=== PATIENT | male | born 1950 | race Caucasian/White ===

== ENCOUNTER 2018-07-24 20:03 | Inpatient (IN) | payer OTHER ==
[~2018-07-24] VITALS: Ht 162.6 cm; Wt 86.4 kg
--- NOTE | ~2018-07-24 | EKG ---
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: JEFFREY : 1950 Requested By: Kyle Hope Order Number: [id number] MD: Saji Newman Measurements Intervals [place] Rate: 86 P: 0 MS: 54 QRS: -29 QRSD: 111 T: 12 QT: 398 QTc: 476 Interpretive Statements Sinus rhythm Ventricular premature complex Consider right atrial enlargement Borderline left axis deviation Low voltage, precordial leads Nonspecific T abnormalities, anterior leads No previous ECG available for comparison Electronically Signed On 07-25-2018 11:06:00 CDT by Saji Newman [email or web address] <ELECTRONICALLY SIGNED> By: Saji Newman MD 07/25/18 1106 26 26 Saji Newman MD /ANGELINE
--- NOTE | ~2018-07-24 | HC ---
[facility] [place] [address] CONSULTATION Name: NOEMY SAUCEDO Room #: 356-P ADM IN M.R.#: [id number] Admission: 07/24/18 Attend Phys: Mariana Nicole Discharge: Date of : 54 Report #: [id number] THIS REPORT FOR: //name// CC: Mariana Lema TYPE OF REPORT: Pulmonary consultation. REFERRING PHYSICIAN: Steve Clay M.D. REASON FOR REFERRAL: Dyspnea. HISTORY OF PRESENT ILLNESS: The patient is a 68-year-old white male who was admitted on 07/24/2018 with dyspnea, constipation for the past 15 days. A Pulmonary consultation was requested due to increasing dyspnea. KUB and chest x-ray shows moderately increased gas pattern with diaphragmatic elevation. Lung volumes are small. The patient just had a NG tube placed. He states that his breathing is much improved. Otherwise, denies any chest pain, productive cough or hemoptysis. PAST MEDICAL HISTORY: Notable for COPD, hypertension, schizophrenia, hyperlipidemia, venous insufficiency and history of thrombophlebitis. PAST SURGICAL HISTORY: Noncontributory. FAMILY HISTORY: Notable for neoplasm in the grandparent. ALLERGIES: None to medications. MEDICATIONS: List reviewed in the MAR. SOCIAL HISTORY: The patient does smoke about a pack a day. He has smoked for about the last 46 years. REVIEW OF SYSTEMS: As mentioned above, otherwise 10-point system review negative. PHYSICAL EXAMINATION: GENERAL: He is awake, alert, appears in mild distress. He has an NG placed. VITAL SIGNS: Temperature is 98 degrees Fahrenheit, pulse is 80, respiratory rate is 20, blood pressure 140/86 mmHg and saturation 97%. HEENT: Normocephalic and atraumatic. NECK: Supple, without any lymphadenopathy or thyromegaly. CHEST: Breath sounds are decreased at the bases, few scattered crackles in the bases and mild expiratory wheezes. [facility] [address] [place] [address] CONSULTATION Name: NOEMY SAUCEDO Room #: 356-P ADM IN .R.#: [id number] Admission: 07/24/18 Attend Phys: Mariana Nicole Discharge: Date of : 54 Report #: [id number] CARDIOVASCULAR: Normal S1 and S2. There are no murmurs. There is no gallop. There is no JVD. There is no carotid bruit. Pulses are 2+/4+ bilaterally. ABDOMEN: Mildly distended and tympanitic. No masses felt. Mildly tender, but no rebound tenderness. GENITOURINARY: Deferred. RECTAL: Deferred. EXTREMITIES: Has no edema, cyanosis or clubbing. RADIOLOGICAL DATA: Chest x-ray and KUB as mentioned above. LABORATORY DATA: Electrolytes unremarkable except for creatinine of 1.2. Liver enzymes are mildly grossly unremarkable. WBC 9500, hemoglobin is 13.4 and platelets are normal. Albumin 2.9. Arterial blood gas revealed pH 7.35, pCO2 of 43 and pO2 of 75 on 50% FiO2. IMPRESSION: 1. Dyspnea secondary to chronic obstructive pulmonary disease along with abdominal distention. 2. Ileus versus partial small-bowel obstruction. 3. History of constipation. 4. History of hypertension. 5. Schizophrenia. RECOMMENDATIONS: Agree with NG tube placement, continue bronchodilators and corticosteroids. DVT and GI prophylaxis recommended. Thank you for this consultation. <ELECTRONICALLY SIGNED> By: Ezequiel Braswell MD 07/30/18 1757 1746 0133 Ezequiel Braswell MD /nt
--- NOTE | ~2018-07-24 | HC ---
[facility] [place] [address] CONSULTATION Name: NOEMY SAUCEDO Room #: 356-P ADM IN M.R.#: [id number] Admission: 07/24/18 Attend Phys: Mariana Nicole Discharge: Date of : 54 Report #: [id number] THIS REPORT FOR: //name// CC: Saulo Wilson Obed DATE OF SERVICE: 07/25/2018 REQUESTING PROVIDER: SERGIO Varghese REASON FOR CONSULTATION: Possible colonic stricture versus mass per CT. HISTORY OF PRESENT ILLNESS: A 68-year-old male who is in the hospital because of a COPD exacerbation, he states. He thinks that this is back to his baseline today. He had a CT done that showed a large amount of stool in the colon, which is moderately distended with a focal change of caliber in the sigmoid colon. A colonic mass or neoplasm causing this narrowing cannot be excluded and radiologist recommends a colonoscopy. The patient states he has never had a colonoscopy. He states he has been having difficulty with constipation, which is something new for him recently. He has seen no blood in the stool, he reports. PAST MEDICAL HISTORY: Otherwise is reviewable in the computerized medical records. CURRENT MEDICATIONS: Include a nicotine patch, methylprednisolone, potassium chloride, magnesium sulfate, albuterol, ondansetron p.r.n., morphine p.r.n. ALLERGIES: There are no known drug allergies. FAMILY HISTORY: Noncontributory. SOCIAL HISTORY: Noncontributory. PHYSICAL EXAMINATION: GENERAL: He has been afebrile. He has been hemodynamically stable. ABDOMEN: Distended, but soft. There are normoactive bowel sounds. There is mild tenderness throughout without peritoneal signs. LABORATORY DATA: White count is normal, hemoglobin is 13.6, platelet count is 249,000. A blood gas done last night reveals a pH of 7.36, pCO2 of 39.0, pO2 of 80.3. His potassium is 2.9 this morning. Other electrolytes are normal. BUN and creatinine are normal. LFTs are normal. IMPRESSION: A 68-year-old male with abnormal CT and constipation who has never had a colonoscopy. [facility] [address] [place] [address] CONSULTATION Name: NOEMY SAUCEDO Room #: 356-P [facility] IN M.R.#: [id number] Admission: 07/24/18 Attend Phys: Mariana Nicole Discharge: Date of : 54 Report #: [id number] PLAN: Schedule colonoscopy for 07/27/2018. <ELECTRONICALLY SIGNED> By: Khris Reynaga MD 07/31/18 0832 0842 1212 Kadeem Yap MD /nt
--- NOTE | ~2018-07-24 | HC ---
[facility] [place] [address] CONSULTATION Name: NOEMY SAUCEDO Room #: 427-P ADM IN M.R.#: [id number] Admission: 07/24/18 Attend Phys: Mariana Nicole Discharge: Date of : 54 Report #: [id number] THIS REPORT FOR: //name// CC: Mariana Lema DATE OF SERVICE: 08/03/2018 WOUND CARE CONSULTATION CHIEF COMPLAINT: Surgical wound, abdominal wall. HISTORY OF PRESENT ILLNESS: This is a 68-year-old male patient who had a near complete colonic obstruction due to mass concerning for carcinoma. He has had abdominal discomfort and nausea. He was noted to have a rectosigmoid mass or palpable lymphadenopathy surrounding the mesentery. He has undergone a diagnostic laparoscopy, which was converted to an open subtotal colectomy with omentectomy, end ileostomy, sigmoid mucous fistula proximal to unresected rectosigmoid mass and left liver lobe biopsies performed on 07/31/2018. He has had some generalized abdominal discomfort following surgery, some separation of the abdominal wall incision line. I have been asked by Dr. Gaines to evaluate him for wound care options. PAST MEDICAL HISTORY: Positive for history of COPD, colonic stricture, hypertension, previous DVT, venous insufficiency, schizophrenia, hyperlipidemia. SOCIAL HISTORY: The patient has smoked half pack of cigarettes daily for the last 46 years. Denies alcohol or drug use. FAMILY HISTORY: Positive for colon cancer in his grandfather. MEDICATIONS: Include Klonopin, vitamin D3, Lexapro, Ziac, Caltrate, clozapine, clonazepam, Lipitor. ALLERGIES: None. REVIEW OF SYSTEMS: CONSTITUTIONAL: The patient denies fever, chills, weight loss. NEUROLOGICAL: The patient denies focal weakness, numbness or tingling. EYES: The patient denies visual changes, redness or drainage. ENT: The patient denies earache, nasal drainage or sore throat. CARDIOVASCULAR: The patient denies chest pain or palpitations, diaphoresis. PULMONARY: The patient denies cough or shortness of breath. GASTROINTESTINAL: The patient does complain of abdominal distention and nausea with vomiting. ORTHOPEDIC: The patient denies pain or swelling in the extremities. [facility] [address] [place] [address] CONSULTATION Name: NOEMY SAUCEDO Room #: 427-P ADM IN M.R.#: [id number] Admission: 07/24/18 Attend Phys: Mariana Nicole Discharge: Date of : 54 Report #: [id number] Other systems in a 14-point review of systems are negative. PHYSICAL EXAMINATION: VITAL SIGNS: At this time include pulse 75, respirations 24, blood pressure 113/77, temperature 99.1. GENERAL: This is a chronically ill-appearing male patient who appears to be in mild discomfort. HEENT: Head normocephalic. Nose and throat clear. NECK: Supple. LUNGS: Diminished. HEART: Regular rhythm. ABDOMEN: Slightly distended. Bowel sounds are present. He has a midline surgical incision line. There is a little bit of separation in the mid portion of this vertical incision line. I have removed one of the [place] and have applied a small amount of pressure along the edges, allowing some better exposure of the incision. This is a partial separation and there is no evidence of true dehiscence. The proximal and distal ends of the incision line appear to be intact. He has a mucous fistula and end ileostomy present on the abdominal wall with some output in the ostomy bag. EXTREMITIES: Without clubbing or cyanosis. He does have some chronic venous stasis dermatitis changes of his lower extremities. NEUROLOGIC: The patient is alert and oriented and appropriate. LABORATORY DATA: Includes white blood cell count 9.8 with hemoglobin of 10.8, hematocrit 31.5. Sodium 140, potassium 4.3, chloride 105, BUN 17, creatinine 1.2, calcium is 7.9. AST is 51, ALT 38, alkaline phosphatase 43, total protein is 4.5, albumin is quite low at 1.8. CLINICAL IMPRESSION: 1. Surgical wound of the abdominal wall following near complete colonic obstruction due to mass, status post subtotal colectomy with omentectomy, end ileostomy, sigmoid mucous fistula and liver lobe biopsy. 2. Chronic obstructive pulmonary disease. 3. Severe protein-calorie malnutrition. RECOMMENDATIONS: At this point in time, we will recommend packing of the surgical wound today with iodoform gauze, which was performed at the bedside. We will recommend a wound VAC likely to be placed on the . He will need aggressive nutritional support. We will continue current medications. I appreciate being asked to see him in consultation. <ELECTRONICALLY SIGNED> By: Zachary Monzon MD 08/05/18 0816 1332 213 Zachary Monzon MD /nt
--- NOTE | ~2018-07-24 | EKG ---
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: LESLIE : 1950 Requested By: Elo Hameed Order Number: [id number] MD: Measurements Intervals [place] Rate: 73 P: 54 [place]: 154 QRS: -10 QRSD: 104 T: 33 QT: 415 QTc: 458 Interpretive Statements Sinus rhythm RSR' in V1 or V2, right VCD or RVH Baseline wander in lead(s) II,III,aVF Compared to ECG 07/24/2018 20:27:32 Right ventricular hypertrophy now present RSR' in V1 or V2 now present Ventricular premature complex(es) no longer present T-wave abnormality no longer present [email or web address] By: 625 [id number] Epiphany Epiphany, /EPI
--- NOTE | ~2018-07-24 | EKG ---
[address] [address] ELECTROCARDIOGRAM REPORT Name: NOEMY SAUCEDO Room #: 356-P ADM IN M.R.#: [id number] Admission: 07/24/18 Attend Phys: Mariana Nicole Discharge: Date of : 54 Report #: [id number] THIS REPORT FOR: //name// [facility] Test Date: 2018-07-31 Test Time: 06:25:46 Pat Name: NOEMY SAUCEDO Department: Room: 356 P Gender: M Collect On Delivery Clerk: LESLIE : 1950 Requested By: Elo Hameed Order Number: [id number] MD: Abrahan Johnson Measurements Intervals [place] Rate: 73 P: 54 [place]: 154 QRS: -10 QRSD: 104 T: 33 QT: 415 QTc: 458 Interpretive Statements Sinus rhythm RSR' in V1 or V2, right VCD Baseline wander in lead(s) II,III,aVF Compared to ECG 07/24/2018 20:27:32 premature ventricular complexes are no longer present Electronically Signed On 07-31-2018 8:16:46 [employer] by Abrahan Johnson [email or web address] <ELECTRONICALLY SIGNED> By: Abrahan Johnson MD, [facility] 07/31/18 0816 0625 Abrahan Johnson MD, [facility] /EPI
--- NOTE | ~2018-07-24 | P ---
[facility] [place] [address] PROCEDURE REPORT Name: NOEMY SAUCEDO Room #: 356-P ADM IN M.R.#: [id number] Admission: 07/24/18 Attend Phys: Mariana Nicole Discharge: Date of : 54 Report #: [id number] THIS REPORT FOR: //name// CC: Geo Sal DATE OF SERVICE: 07/30/2018 PROCEDURE: Flexible sigmoidoscopy with biopsy and tattooing of sigmoid lesion. PATIENT OF: Latha Sal MD and Sam Angulo MD. INDICATION FOR PROCEDURE: This patient has symptoms of a bowel obstruction. He has a mass in his sigmoid that is suspected based on CT scan findings. It appears to be an obstructing mass with proximal colonic and small bowel dilatation. Flexible sigmoidoscopy is being performed today to obtain biopsies and tattoo the distal edge of the lesion. Informed consent for this procedure was obtained prior to the administration of any medication. The risks of the procedure which include bleeding, perforation, infection, complications of sedation and the possibility I could miss something have been explained to the patient and he has indicated his consent by signing. Digital rectal exam did not reveal any palpable abnormalities and the prostate does not seem enlarged. Then, the Olympus colonoscope was introduced through the anal sphincter and advanced under direct visualization to approximately 15 cm from the anal verge where I encountered a completely obstructing distal sigmoid lesion that is probably a colon cancer. Multiple biopsies were obtained from this lesion for histopathology and good hemostasis was noted after those biopsies were performed. Then, I used 4 mL of spot tattoo ink to inject 1 mL in every quadrant just below the lesion or distal to the lesion. Then, the retroflexion in the rectum revealed no other abnormalities. The scope was withdrawn. The patient went to the recovery area in stable condition. He tolerated the procedure well. IMPRESSION: Obstructing mass at 15 cm in the distal sigmoid colon, biopsied and tattooed as above. RECOMMENDATIONS: Recommendations are to await the path report. I believe, the patient is going to go to surgery tomorrow for a diverting colostomy and possible sigmoid resection. [facility] [address] [place] [address] PROCEDURE REPORT Name: NOEMY SAUCEDO Room #: 356-P [facility] IN M.R.#: [id number] Admission: 07/24/18 Attend Phys: Mariana Nicole Discharge: Date of : 54 Report #: [id number] Thank you very much once again for allowing me to participate in his care, Dr. Angulo and Dr. Sal. <ELECTRONICALLY SIGNED> By: Aleida Storm DO 07/31/18 0728 1442 0444 Aleida Storm, /nt
--- NOTE | ~2018-07-24 | PATH ---
[facility] [address] [place] [address] PATHOLOGY RPT PROCEDURE Name: NOEMY SAUCEDO Room #: 429-P ADM IN M.R.#: [id number] Admission: 07/24/18 Date of : 54 Discharge: Report #: [id number] Path Case #: [id number] Note [facility] Accession Number: [id number] TESTS RESULT FLAG UNITS REF RANGE LAB Clinician Provided Cytology Information No. of containers..01 Other (Miscellaneous) Source: PERITONEAL FLUID DIAGNOSIS: 02 PERITONEAL FLUID NEGATIVE FOR MALIGNANT CELLS. REACTIVE MESOTHELIAL CELLS ARE PRESENT. THIS INTERPRETATION INCLUDES EVALUATION OF A CELL BLOCK. Signed out by: Maricarmen Alas MD, Pathologist NPI- [id number] Performed by: Andreas Davis, Principal Android Developer ([facility]) Gross description: 01 13ML, RED (BLOODY), CLOUDY /LCS FLAG LEGEND: L-Low Normal,H-High Normal,LL-Alert Low,HH-Alert High <-Panic Low,>-Panic High,A-Abnormal,AA-Critical Abnormal Performed at: [address] [place] [address] Tristan Donovan MD, [address] [address] Maricarmen Alas MD, Specimen Comment: A courtesy copy of this report has been sent to [employer] Comment: [phone]. Specimen Comment: Report sent to Specimen Comment: A duplicate report has been generated due to demographic updates. Performed at: [address], [place], [place] [id number] MD Tristan Donovan MD Phone: [phone]
--- NOTE | ~2018-07-24 | PATH ---
[facility] [place] [address] PATHOLOGY RPT PROCEDURE Name: NOEMY SCHROEDER Room #: 427-P ADM IN M.R.#: [id number] Admission: 07/24/18 Date of : 54 Discharge: Report #: [id number] Path Case #: [id number] LCA Accession Number: [id number] . 01 Material submitted: . PART A: SUBTOTAL COLECTOMY PART B: LIVER BIOPSY PART C: OMENTECTOMY . 01 Clinical history: . Colonic stricture. . 02 Diagnosis: A. Terminal ileum, appendix and colon, subtotal colectomy: - Multiple polyps identified within the cecum, transverse colon, distal colon, and status post polypectomy within the distal sigmoid. - Tubular adenoma x3, cecum, transverse colon and distal colon; negative for high-grade dysplasia. - 14.0 cm terminal ileum showing marked dilation and reactive changes. - Appendix with focal reactive hyperplastic changes. - Four reactive lymph nodes. - Negative for malignancy. - Margins of resection are showing no significant diagnostic abnormalities. . B. Liver, needle core biopsy: - Approximately 10% macrovesicular steatosis. - Mild portal chronic inflammation. - Negative for malignancy. . C. Omentum, omentectomy: - Fibroadipose tissue with congestion and reactive changes. - Negative for malignancy. . (IUV:clean out driller helper; 08/03/2018) MBR/08/04/2018 . 02 Comment: A: Multiple polyps are identified throughout the large intestine; however, no malignancy (invasive adenocarcinoma) is identified. The specimen obtained during the flexible sigmoidoscopy ([id number]) showed a tubular adenoma associated with multiple foci of high-grade dysplasia; however, no invasive adenocarcinoma. This focus showed no residual tubular adenoma upon resection. Please refer to separate report for complete details. . B: Examination shows mild portal chronic inflammation within the [address] [address] PATHOLOGY RPT PROCEDURE Name: NOEMY SCHROEDER Room #: 427-P [facility] IN .R.#: [id number] Admission: 07/24/18 Date of : 54 Discharge: Report #: [id number] Path Case #: [id number] adequately sampled liver needle core biopsy tissue. Approximately 10% macrovesicular steatosis is identified. There is no evidence of steatohepatitis. There is no evidence of ballooning, or foci of lobular inflammation present. The bile ducts appear unremarkable without any evidence of destruction, or ductular proliferation. Trichrome stain shows mildly enlarged portal tracts with no evidence of periportal or perisinusoidal fibrosis. Trichrome stain shows intact hepatic reticulum. PAS were done with and without diastase highlight Kupffer cell macrophages and are negative for intracytoplasmic globules in zone one. Iron stain is negative. . The lack of malignancy in the current specimen is discussed with Dr. Tremaine Gaines at noon on 08/03/18. . (IUV:clean out driller helper; 08/03/2018) . 02 Electronically signed: . Maricarmen Alas MD, Pathologist NPI- [id number] . 01 Gross description: . A. Received in formalin labeled "Elda, Noemy, subtotal colectomy" is a specimen consisting of a portion of terminal ileum (14.0 x 2.5 cm), cecum (12.0 x 9.0 x 1.8 cm), vermiform appendix (6.8 x 1.2 cm), and segment of large bowel (143.5 x 5.2 cm). The proximal and distal margins are closed with dakotah line. The serosa is pink-cook and smooth with an area of possible black ink measuring 5.4 x 3.4 cm, which is located 0.6 cm from the distal staple line margin. The specimen is opened to reveal a cook-brown sessile nodular polyp within the cecum measuring 2.8 x 1.4 x 0.5 cm. The polyp is located 3.5 cm from the ileocecal valve and 5.5 cm from the appendiceal orifice. Present within the transverse colon is a separate sessile colon polyp measuring 0.8 x 0.8 x 0.2 cm. A third polyp is identified in the distal aspect of the specimen measuring 0.8 x 0.5 x 0.3 cm. The polyps are located 18.3 cm from the proximal margin and 45.0 cm from the distal margin at closest approach. The uninvolved colonic mucosa is flattened and dilated, without grossly evident areas of stricture. The possible ink at the distal aspect does not correspond with an abnormality on the mucosal surface. The appendix is serially sectioned to reveal no fecaliths or perforations, and an average luminal diameter of 0.6 cm. The mesenteric fat is palpitated and serially sectioned to reveal 4 pink-cook possible lymph nodes ranging from 0.2-0.3 cm in greatest dimension. Label Fuser Tender sections of the specimen are submitted as follows: . A1 proximal margin A2-A4 distal margin A5 investment representative ileocecal valve A6 investment representative appendix and one half of the distal tip [facility] [address] [address] PATHOLOGY RPT PROCEDURE Name: NOEMY SCHROEDER Room #: 427-P ADM IN M.R.#: [id number] Admission: 07/24/18 Date of : 54 Discharge: Report #: [id number] Path Case #: [id number] A7 closest mesenteric margin for cecal polyp A8-A10 entire cecal polyp, serosa inked black A11 transverse colon polyp, bisected A12 distal colon polyp A13 investment representative sections of possible serosal tattoo A14 multiple possible lymph nodes A15 additional pericolonic fat to look for lymph nodes ([facility]; 08/02/2018) . After initial microscopic examination, a thorough second inspection is performed. No distinct masses or lesions are noted grossly. Additional investment representative sections are submitted as follows: . A16 cross-section of black inked serosal surface closest to distal margin A17-A21 remainder of black inked serosal surface, perpendicular sections. ([facility]; 08/03/2018) . B. Received in formalin labeled "Noemy Schroeder, liver biopsy" are two cook-brown cylindrical soft tissue cores which measure 0.2 cm in diameter and 1.6 and 1.4 cm in length. The specimen is submitted entirely in cassette B1. . C. Received in formalin labeled "Noemy Schroeder, omentectomy: A cook-yellow lobulated portion of omentum measuring 49.0 x 22.5 x 2.0 cm. Focal hemorrhagic areas are identified. No tumor nodules are present. Label Fuser Tender sections are submitted in cassettes C1-C3, with 2 sections in each cassette. ([facility]; 08/02/2018) SYC/SYC . 02 Pathologist provided ICD-10: D12.0, D12.3, D12.6, K76.0, K76.9, K66.8 . 02 CPT . 439336, 801571, 654062, 017158, 522730, 403283, 887449, 987820, 270411 Specimen Comment: A courtesy copy of this report has been sent to Specimen Comment: [phone], . Specimen Comment: Report sent to / DR FU Specimen Comment: A duplicate report has been generated due to demographic updates. Performed at: [address], [place] [id number] MD Tristan Donovan MD Phone: [phone] Performed at: [address] [id number] [address] [address] PATHOLOGY RPT PROCEDURE Name: NOEMY SCHROEDER Room #: 427-P ADM IN M.R.#: [id number] Admission: 07/24/18 Date of : 54 Discharge: Report #: [id number] Path Case #: [id number] MD Maricarmen Alas MD Phone: [phone]
--- NOTE | ~2018-07-24 | PATH ---
[facility] [address] [place] [address] PATHOLOGY RPT PROCEDURE Name: NOEMY SCHROEDER Room #: 427-P ADM IN M.R.#: [id number] Admission: 07/24/18 Date of : 54 Discharge: Report #: [id number] Path Case #: [id number] LCA Accession Number: [id number] . 01 Material submitted: . DISTAL SIGMOID MASS BIOPSY . 01 Clinical history: . Abnormal CT Distal sigmoid mass . 02 Diagnosis: Sigmoid colon, distal sigmoid mass, endoscopic biopsy: - Tubular adenoma associated with foci of high grade dysplasia. - No definite invasive carcinoma present (please see comment). LBQ/08/03/2018 . 02 Comment: Examination shows fragments of a tubular adenoma associated with high grade dysplasia sampled in multiple fragments. Invasive carcinoma is not identified. The provided finding of "mass" is noted. Irregular glands, or desmoplastic foci are not present in the biopsy tissue to support a diagnosis of invasive adenocarcinoma. It is noted that the specimen [id number] is a colon resection on the same patient. Lack of invasive adenocarcinoma in this, as well as the colon resection, are discussed with Dr. Tremaine Gaines at 12:05 p.m. on 08/03/18. (IUV/db; 08/03/18) . 02 Electronically signed: . Maricarmen Alas MD, Pathologist NPI- [id number] . 01 Gross description: . The specimen is received in formalin, labeled "Noemy Schroeder, distal sigmoid mass biopsy" and consists of multiple soft and friable fragments of cook tissue measuring 1.5 x 0.6 x 0.3 cm in aggregate which are entirely submitted in A1. (SDY; 07/31/2018) SYU/SYU . 02 Pathologist provided ICD-10: D12.5 . 02 CPT . 513392 Specimen Comment: A courtesy copy of this report has been sent to Specimen Comment: [phone], , [place] [address] PATHOLOGY RPT PROCEDURE Name: NOEMY SCHROEDER Room #: 427-P [facility] IN M.R.#: [id number] Admission: 07/24/18 Date of : 54 Discharge: Report #: [id number] Path Case #: [id number] Specimen Comment: Report sent to Dr.DR TANK MCLEOD / DR SENIOR Specimen Comment: A duplicate report has been generated due to demographic updates. Performed at: [address] [facility] [address], [place], [place] [id number] MD Tristan Donovan MD Phone: [phone] Performed at: [address] [facility] [address] [id number] MD Maricarmen Alas MD Phone: [phone]
[2018-07-24 20:10] VITALS: BP 148/78
[2018-07-24] MEDS ORDERED: LIPITOR 20 MG T20 M1 PO (20:21)
[2018-07-24] MEDS ORDERED: INGREZZA40 MG PO (20:22)
[2018-07-24] MEDS ORDERED: [UNRECOGNIZED DRUG - OTHER] PO (20:23)
[2018-07-24] MEDS ORDERED: KLONOPIN1 MG PO (20:23)
[2018-07-24 20:36] LABS: ABSOLUTE NEUTROPHILS 7.2 thou/uL (1.4-8.2); BASOPHILS 0.4 % (0.0-2.0); HEMOGLOBIN 13.6 gm/dL (14.0-18.0); LYMPHOCYTES 6.2 % (24.0-44.0); MCV 91.3 fL (80.0-100.0); MONOCYTES 4.6 % (1.0-8.0); PLATELET COUNT 249 thou/uL (150-400); POLYS 88.8 % (36.0-66.0); RBC 4.38 mil/uL (4.50-6.00); RDW 15.6 % (10.5-14.5); WBC 8.1 thou/uL (4.0-11.0)
[2018-07-24 20:41] LABS: ANION GAP 13 mmol/L (7-16); BUN 13 mg/dL (7-18); CALCIUM 8.5 mg/dL (8.5-10.1); CHLORIDE 106 mmol/L (98-107); CO2 25 mmol/L (21-32); CREATININE 1.4 mg/dL (0.7-1.3); GLUCOSE 119 mg/dL (74-106); SODIUM 144 mmol/L (136-145)
[2018-07-24 20:48] LABS: BE(vivo) -3.5 mmol/L (-2 to +3); HCO3 21.5 mmol/L (22.0-26.0); PO2 80.3 mmHg (80.0-100.0); sO2 95.5 % (92.0-98.0)
[2018-07-24 20:49] LABS: ALBUMIN 2.9 g/dL (3.4-5.0); DIRECT BILIRUBIN 0.2 mg/dL (<0.1-0.3); LIPASE 71 U/L (73-393); SGOT 22 U/L (15-37); SGPT 17 U/L (30-65); TOTAL BILIRUBIN 0.5 mg/dL (<0.1-1.0); TOTAL PROTEIN 6.6 g/dL (6.4-8.2); TROPONIN-I <0.06 ng/mL (<0.06)
[2018-07-24 21:50] LABS: URINE BILIRUBIN NEGATIVE (Negative); URINE BLOOD NEGATIVE (Negative); URINE CLARITY CLEAR; URINE COLOR YELLOW; URINE GLUCOSE-RANDOM* NEGATIVE (Negative); URINE KETONES NEGATIVE (Negative); URINE LEUKOCYTES-REFLEX NEGATIVE (Negative); URINE NITRITE-REFLEX NEGATIVE (Negative); URINE PROTEIN (DIPSTICK) NEGATIVE (Negative); URINE SPECIFIC GRAVITY >= 1.030 (1.005-1.035); URINE UROBILINOGEN 0.2 E.U./dl (0.2-1.0)
[2018-07-24 23:25] VITALS: BP 147/96
[2018-07-24 23:34] VITALS: BP 152/102
[2018-07-25] VITALS (7 sets, daily range): BP systolic 132–145; BP diastolic 79–94
[2018-07-25] MEDS ORDERED: VITAMIN D5000 UNIT PO (02:49)
[2018-07-25] MEDS ORDERED: LEXAPRO20 MG PO (02:50)
[2018-07-25] MEDS ORDERED: ZIAC 5-6.25 MG1 EACH PO (02:53)
[2018-07-25] MEDS ORDERED: CALCIUM 600 +1 EAC1 PO (02:54)
[2018-07-25] MEDS ORDERED: CLOZAPINE100 M1 PO (02:56)
[2018-07-25] MEDS ORDERED: CLONAZEPAM 1 MG1 M1 PO (02:58)
[2018-07-25] MEDS ORDERED: CLONAZEPAM 0.50.5 M1 PO (03:01)
[2018-07-25] MEDS ORDERED: CLOZAPINE200 MG PO (03:03)
[2018-07-25 06:19] LABS: CREATININE 1.3 mg/dL (0.7-1.3)
[2018-07-25 06:21] LABS: POTASSIUM 2.9 mmol/L (3.5-5.1)
[2018-07-26] VITALS (8 sets, daily range): BP systolic 137–167; BP diastolic 79–100
[2018-07-26 06:39] LABS: ALBUMIN 2.9 g/dL (3.4-5.0); CALCIUM 8.2 mg/dL (8.5-10.1); CREATININE 1.2 mg/dL (0.7-1.3); PHOSPHORUS 2.7 mg/dL (2.5-4.9); POTASSIUM 3.9 mmol/L (3.5-5.1)
[2018-07-26 22:03] LABS: HCO3 21.9 mmol/L (22.0-26.0); PO2 60.2 mmHg (80.0-100.0); sO2 89.3 % (92.0-98.0)
[2018-07-26 22:04] LABS: pH 7.325 (7.360-7.450)
[2018-07-27] VITALS (7 sets, daily range): BP systolic 144–153; BP diastolic 57–110
[2018-07-27 04:38] LABS: BE(vivo) -2.3 mmol/L (-2 to +3); HCO3 23.3 mmol/L (22.0-26.0); PCO2 43.1 mmHg (35.0-45.0); PO2 75.3 mmHg (80.0-100.0); pH 7.351 (7.360-7.450); sO2 94.5 % (92.0-98.0)
[2018-07-27 10:00] LABS: HEMATOCRIT 40.7 % (42.0-52.0); HEMOGLOBIN 13.4 gm/dL (14.0-18.0); MCH 30.1 pg (26.0-34.0); MCHC 32.9 g/dL (28.0-37.0); MCV 91.5 fL (80.0-100.0); RBC 4.45 mil/uL (4.50-6.00); RDW 15.7 % (10.5-14.5); WBC 9.5 thou/uL (4.0-11.0)
[2018-07-27 10:10] LABS: CALCIUM 8.5 mg/dL (8.5-10.1); CREATININE 1.4 mg/dL (0.7-1.3); POTASSIUM 3.6 mmol/L (3.5-5.1)
[2018-07-28] VITALS (8 sets, daily range): BP systolic 136–153; BP diastolic 86–109
[2018-07-29 03:20] VITALS: BP 123/79
[2018-07-29 08:13] VITALS: BP 122/74
[2018-07-29 11:00] LABS: ABSOLUTE NEUTROPHILS 7.3 thou/uL (1.4-8.2); BASOPHILS 0.3 % (0.0-2.0); HEMATOCRIT 43.7 % (42.0-52.0); HEMOGLOBIN 14.5 gm/dL (14.0-18.0); LYMPHOCYTES 1.9 % (24.0-44.0); MCH 30.1 pg (26.0-34.0); MCHC 33.1 g/dL (28.0-37.0); MCV 90.9 fL (80.0-100.0); MONOCYTES 5.2 % (1.0-8.0); PLATELET COUNT 217 thou/uL (150-400); POLYS 92.6 % (36.0-66.0); RBC 4.81 mil/uL (4.50-6.00); RDW 15.5 % (10.5-14.5); WBC 7.9 thou/uL (4.0-11.0)
[2018-07-29 12:12] VITALS: BP 133/86
[2018-07-29 16:34] VITALS: BP 152/110
[2018-07-29 16:50] VITALS: BP 140/86
[2018-07-29 20:40] VITALS: BP 140/80
[2018-07-30 05:10] VITALS: BP 121/75
[2018-07-30 08:42] VITALS: BP 106/74
[2018-07-30 16:06] VITALS: BP 132/97
[2018-07-30 21:00] VITALS: BP 112/70
[2018-07-30 23:50] VITALS: BP 106/66
[2018-07-31] VITALS (13 sets, daily range): BP systolic 85–122; BP diastolic 36–75
[2018-07-31 05:48] LABS: CALCIUM 8.1 mg/dL (8.5-10.1); POTASSIUM 5.1 mmol/L (3.5-5.1)
[2018-07-31 12:29] LABS: HEMATOCRIT 39.7 % (42.0-52.0); MCH 30.3 pg (26.0-34.0); MCHC 32.6 g/dL (28.0-37.0); MCV 92.9 fL (80.0-100.0); RBC 4.27 mil/uL (4.50-6.00); RDW 15.7 % (10.5-14.5); WBC 4.9 thou/uL (4.0-11.0)
[2018-07-31 12:39] LABS: ALBUMIN 2.9 g/dL (3.4-5.0); CALCIUM 7.6 mg/dL (8.5-10.1); CREATININE 1.2 mg/dL (0.7-1.3); TOTAL BILIRUBIN 1.7 mg/dL (<0.1-1.0); TOTAL PROTEIN 5.4 g/dL (6.4-8.2)
[2018-08-01] VITALS (24 sets, daily range): BP systolic 88–129; BP diastolic 53–87
[2018-08-01 06:28] LABS: CALCIUM 7.2 mg/dL (8.5-10.1); CREATININE 1.8 mg/dL (0.7-1.3); POTASSIUM 5.9 mmol/L (3.5-5.1)
[2018-08-01 06:39] LABS: HEMATOCRIT 38.3 % (42.0-52.0); HEMOGLOBIN 12.8 gm/dL (14.0-18.0); MCHC 33.4 g/dL (28.0-37.0); MCV 92.6 fL (80.0-100.0); RBC 4.14 mil/uL (4.50-6.00); RDW 15.6 % (10.5-14.5); WBC 10.3 thou/uL (4.0-11.0)
[2018-08-01 12:15] LABS: CALCIUM 7.2 mg/dL (8.5-10.1); CREATININE 1.8 mg/dL (0.7-1.3)
[2018-08-02] VITALS (15 sets, daily range): BP systolic 91–150; BP diastolic 52–88
[2018-08-02 03:38] LABS: HEMATOCRIT 31.5 % (42.0-52.0); MCH 30.7 pg (26.0-34.0); MCHC 33.3 g/dL (28.0-37.0); MCV 92.4 fL (80.0-100.0); RBC 3.41 mil/uL (4.50-6.00); RDW 15.5 % (10.5-14.5); WBC 11.2 thou/uL (4.0-11.0)
[2018-08-02 03:40] LABS: HEMOGLOBIN 10.5 gm/dL (14.0-18.0)
[2018-08-02 03:54] LABS: ALBUMIN 1.8 g/dL (3.4-5.0); ANION GAP 5 mmol/L (7-16); BUN 25 mg/dL (7-18); CHLORIDE 109 mmol/L (98-107); CO2 30 mmol/L (21-32); CREATININE 1.4 mg/dL (0.7-1.3); GLUCOSE 81 mg/dL (74-106); PHOSPHORUS 2.9 mg/dL (2.5-4.9); POTASSIUM 5.3 mmol/L (3.5-5.1); SGOT 51 U/L (15-37); SGPT 38 U/L (30-65); SODIUM 144 mmol/L (136-145); TOTAL BILIRUBIN 0.8 mg/dL (<0.1-1.0); TOTAL PROTEIN 4.5 g/dL (6.4-8.2); TROPONIN-I <0.06 ng/mL (<0.06)
[2018-08-03 03:31] VITALS: BP 112/58
[2018-08-03 06:06] LABS: HEMATOCRIT 31.5 % (42.0-52.0); HEMOGLOBIN 10.8 gm/dL (14.0-18.0); MCH 31.6 pg (26.0-34.0); MCHC 34.4 g/dL (28.0-37.0); MCV 91.9 fL (80.0-100.0); RBC 3.43 mil/uL (4.50-6.00); RDW 15.1 % (10.5-14.5); WBC 9.8 thou/uL (4.0-11.0)
[2018-08-03 06:15] LABS: CALCIUM 7.9 mg/dL (8.5-10.1); CREATININE 1.2 mg/dL (0.7-1.3); POTASSIUM 4.3 mmol/L (3.5-5.1)
[2018-08-03 07:51] VITALS: BP 110/64
[2018-08-03 12:16] VITALS: BP 117/75
[2018-08-03 20:50] VITALS: BP 117/73
[2018-08-04 06:00] VITALS: BP 131/86
[2018-08-04 07:45] VITALS: BP 113/77
[2018-08-04 10:21] VITALS: BP 113/77
[2018-08-04 15:30] VITALS: BP 122/93
[2018-08-04 19:30] VITALS: BP 116/76
[2018-08-05 04:00] VITALS: BP 126/72
[2018-08-05 06:44] LABS: ABSOLUTE NEUTROPHILS 9.1 thou/uL (1.4-8.2); BASOPHILS 0.1 % (0.0-2.0); HEMATOCRIT 30.8 % (42.0-52.0); HEMOGLOBIN 10.6 gm/dL (14.0-18.0); LYMPHOCYTES 4.5 % (24.0-44.0); MCH 31.4 pg (26.0-34.0); MCHC 34.4 g/dL (28.0-37.0); MCV 91.4 fL (80.0-100.0); MONOCYTES 7.3 % (1.0-8.0); PLATELET COUNT 204 thou/uL (150-400); POLYS 88.1 % (36.0-66.0); RBC 3.37 mil/uL (4.50-6.00); WBC 10.3 thou/uL (4.0-11.0)
[2018-08-05 06:53] LABS: CALCIUM 8.2 mg/dL (8.5-10.1); CREATININE 1.1 mg/dL (0.7-1.3)
[2018-08-05 09:32] VITALS: BP 117/67
[2018-08-05 17:58] VITALS: BP 140/81
[2018-08-05 19:20] VITALS: BP 132/77
[2018-08-06 04:43] VITALS: BP 140/88
[2018-08-06 08:21] VITALS: BP 151/75
[2018-08-06] MEDS ORDERED: CLOZAPINE50 MG PO (12:52)
[2018-08-06] MEDS ORDERED: ENOXAPARIN40 MG/0.1 SUBQ (12:52)
[2018-08-06] MEDS ORDERED: PULMICORT0.5 MG/21 INH (12:52)
[2018-08-06] MEDS ORDERED: IPRAT-ALBUT 0.5-3 ML INH (12:52)
[2018-08-06] MEDS ORDERED: ALPRAZOLAM 0.0.25 M1 PO (12:52)
[2018-08-06] MEDS ORDERED: FLOMAX0.4 MG PO (12:52)
[2018-08-06] MEDS ORDERED: NYSTATIN100000 UNI SWISH&SPIT (12:52)
[2018-08-06] MEDS ORDERED: AUGMENTIN 875-1 EACH PO (12:52)
[2018-08-06] MEDS ORDERED: TRAMADOL 50 MG50 MG PO (12:52)
[2018-08-06 17:06] VITALS: BP 143/83
[2018-08-06 20:58] VITALS: BP 81/47
[2018-08-07 05:08] VITALS: BP 149/97
[2018-08-07 08:04] VITALS: BP 128/93
[2018-08-07 16:53] VITALS: BP 139/89
[2018-08-07 19:56] VITALS: BP 158/98
[2018-08-08 07:47] VITALS: BP 99/64
[2018-08-08 15:00] VITALS: BP 135/85
[2018-08-08 15:04] VITALS: BP 124/83
[2018-08-08 16:00] VITALS: BP 149/76
[2018-08-08 21:30] VITALS: BP 146/79
[2018-08-09 05:00] VITALS: BP 109/74
[2018-08-09 07:46] VITALS: BP 118/75
[2018-08-09 16:36] VITALS: BP 109/73
[2018-08-09 19:44] VITALS: BP 110/76
[2018-08-10 05:28] VITALS: BP 133/86
[2018-08-10 08:31] VITALS: BP 126/75
[2018-08-10 17:01] VITALS: BP 107/87
== END 2018-08-10 20:10 | DRG 329 ==
LOC: ER 20:03 → 3W 23:13 → ICU 23:13 → EROBS 23:13 → 4E 23:13 → 3W 23:56 → ICU 07-31 10:15 → 4E 08-02 13:29
PROVIDERS: Emergency Medicine; Hospitalist; Internal Medicine Pulmonary Disease; Nurse Practitioner Acute Care; Student in an Organized Health Care Education/Training Program; Surgery
PROC: 5A09357 Assistance with Respiratory Ventilation, Less than 24 Consecutive Hours, Continuous Positive Airway Pressure (ICD-10-PCS; principal; 2018-07-27)
PROC: 0DBN8ZX Excision of Sigmoid Colon, Via Natural or Artificial Opening Endoscopic, Diagnostic (ICD-10-PCS; 2018-07-30)
PROC: 0DBE0ZZ Excision of Large Intestine, Open Approach (ICD-10-PCS; 2018-07-31)
PROC: 5A09357 Assistance with Respiratory Ventilation, Less than 24 Consecutive Hours, Continuous Positive Airway Pressure (ICD-10-PCS; 2018-07-31)
PROC: 0WJP4ZZ Inspection of Gastrointestinal Tract, Percutaneous Endoscopic Approach (ICD-10-PCS; 2018-07-31)
PROC: 0D1B0Z4 Bypass Ileum to Cutaneous, Open Approach (ICD-10-PCS; 2018-07-31)
PROC: 0DBU0ZZ Excision of Omentum, Open Approach (ICD-10-PCS; 2018-07-31)
PROC: 0FB20ZX Excision of Left Lobe Liver, Open Approach, Diagnostic (ICD-10-PCS; 2018-07-31)
PROC: 5A09357 Assistance with Respiratory Ventilation, Less than 24 Consecutive Hours, Continuous Positive Airway Pressure (ICD-10-PCS; 2018-08-01)
DX: K56.699 Other intestinal obstruction unspecified as to partial versus complete obstruction (principal); E43 Unspecified severe protein-calorie malnutrition; J96.21 Acute and chronic respiratory failure with hypoxia; J44.1 Chronic obstructive pulmonary disease with (acute) exacerbation; K63.2 Fistula of intestine; N17.9 Acute kidney failure, unspecified; K59.00 Constipation, unspecified; E87.5 Hyperkalemia; D12.5 Benign neoplasm of sigmoid colon; I10 Essential (primary) hypertension; E87.6 Hypokalemia; E78.5 Hyperlipidemia, unspecified; F20.9 Schizophrenia, unspecified; F17.210 Nicotine dependence, cigarettes, uncomplicated; Z68.32 Body mass index [BMI] 32.0-32.9, adult; Z86.718 Personal history of other venous thrombosis and embolism; Z79.899 Other long term (current) drug therapy; Z80.0 Family history of malignant neoplasm of digestive organs; Z23 Encounter for immunization
CPT/HCPCS: 10078; 10779; 10783; 50010; 50093; 50101; 50249; 50386; 50455; 50525; 50555; 50740; 50962; 51046; 51412; 51489; 51708; 51712; 52265; 52287; 53307; 53310; 54118; 56462; 56524; 56526; 56527; 56639; 56771; 57092; 62110; 62900; 65002; 70005

== ENCOUNTER 2020-07-26 14:18 | Inpatient (IN) | payer OTHER ==
[~2020-07-26] VITALS: Ht 165.1 cm; Wt 96.3 kg
[2020-07-26] VITALS (17 sets, daily range): BP systolic 89–150; BP diastolic 57–104
--- NOTE | ~2020-07-26 | HC ---
[facility] [place] [place] [address] CONSULTATION Name: NOEMY SAUCEDO Room #: 245-P ADM IN M.R.#: [id number] Admission: 07/26/20 Attend Phys: Irwin Aldridge MD Discharge: Date of : 54 Report #: [id number] THIS REPORT FOR: cc: Anival Chambers MD, Srinath MD Al-Absi,Jimmy Lujan MD ~ REASON FOR CONSULTATION: Acute kidney injury. REASON FOR PRESENTATION: The patient was admitted on 07/26/2020 with acute mental status changes. HISTORY OF PRESENT ILLNESS: Unfortunately, the patient is currently intubated and not able to provide me with any history. He has a history of paranoid schizophrenia, dementia. On arrival to the Emergency Room, the patient was discovered to have COVID-19 infection. The patient's creatinine on 07/26/2020 on arrival was elevated at 4.8. This has improved and went down to 1.5. However, in the last few days, the patient's blood pressure has started to go down requiring pressors and he is running into an acute kidney injury with a creatinine now going all the way up to 4.6 requiring a Nephrology consultation. REVIEW OF SYSTEMS: Unobtainable given the patient's current mental status. ALLERGIES: None. MEDICATIONS: 1. The patient is currently maintained on clonazepam. 2. Lasix. 3. Vitamin D. 4. Haldol. 5. Lorazepam. 6. Meropenem. 7. Methylprednisone. 8. Thiamine. 9. Levophed. 10. Vasopressin. FAMILY HISTORY: Unobtainable. SOCIAL HISTORY: Unobtainable. REVIEW OF SYSTEMS: Unobtainable given the patient's current mental status. PHYSICAL EXAMINATION: GENERAL: Intubated. Pulse rate is 74, blood pressure is 82/44. HEAD AND NECK: No jugular venous distention. [facility] [address] [place] [address] CONSULTATION Name: NOEMY SAUCEDO Room #: 245-P ADM IN ..#: [id number] Admission: 07/26/20 Attend Phys: Irwin Aldridge MD Discharge: Date of : 54 Report #: [id number] CHEST: Bilateral crackles. CARDIOVASCULAR: No rub detected. ABDOMEN: Soft. EXTREMITIES: Lower extremities, no edema. LABORATORY DATA: White blood cell count 8.7, platelets 109. Sodium 139, potassium 4.1, BUN 57, creatinine 5.6. DIAGNOSTIC DATA: Chest x-ray: Diffuse bilateral pulmonary infiltrates. ASSESSMENT, IMPRESSION AND PLAN: 1. Acute kidney injury. 2. Respiratory failure. 3. COVID-19 infection, acute respiratory failure. 4. Schizophrenia. 5. No code status. This is a nonsurvivable situation. I will reach out to the patient's family member. Worsening renal function, very high morbidity and mortality. Not a candidate for dialysis. I will discuss with the other team members and the family members. Recommend proceeding with extubation, palliative, comfort care. By: 0751 Jimmy Clayton MD /nt
[~2020-07-26 14:18] MED LIST: ALPRAZOLAM 0.0.25 M1 PO; AUGMENTIN 875-1 EACH PO; CALCIUM 600 +1 EAC1 PO; CLONAZEPAM 0.50.5 M1 PO; CLONAZEPAM 1 MG1 M1 PO; CLOZAPINE100 M1 PO; CLOZAPINE200 MG PO; CLOZAPINE50 MG PO; ENOXAPARIN40 MG/0.1 SUBQ; FLOMAX0.4 MG PO; INGREZZA40 MG PO; IPRAT-ALBUT 0.5-3 ML INH; KLONOPIN1 MG PO; LEXAPRO20 MG PO; LIPITOR 20 MG T20 M1 PO; NYSTATIN100000 UNI SWISH&SPIT; PULMICORT0.5 MG/21 INH; TRAMADOL 50 MG50 MG PO; VITAMIN D5000 UNIT PO; ZIAC 5-6.25 MG1 EACH PO; [UNRECOGNIZED DRUG - OTHER] PO
[2020-07-26 14:54] LABS: ABSOLUTE NEUTROPHILS 5.3 thou/uL (1.4-8.2); HEMATOCRIT 33.9 % (42.0-52.0); HEMOGLOBIN 11.3 gm/dL (14.0-18.0); LYMPHOCYTES 2.5 % (24.0-44.0); MCHC 33.2 g/dL (28.0-37.0); MCV 90.3 fL (80.0-100.0); MONOCYTES 4.4 % (1.0-8.0); PLATELET COUNT 176 thou/uL (150-400); POLYS 93.1 % (36.0-66.0); RBC 3.75 mil/uL (4.50-6.00); RDW 16.8 % (10.5-14.5); WBC 5.7 thou/uL (4.0-11.0)
[2020-07-26 15:01] LABS: ANION GAP 14 mmol/L (7-16); BUN 43 mg/dL (7-18); CALCIUM 8.7 mg/dL (8.5-10.1); CHLORIDE 109 mmol/L (98-107); CO2 22 mmol/L (21-32); CREATININE 4.8 mg/dL (0.7-1.3); GLUCOSE 119 mg/dL (74-106); POTASSIUM 4.6 mmol/L (3.5-5.1); SODIUM 145 mmol/L (136-145)
[2020-07-26 15:11] LABS: ALBUMIN 2.6 g/dL (3.4-5.0); MAGNESIUM 1.8 mg/dL (1.8-2.4); SGOT 64 U/L (15-37); SGPT 50 U/L (30-65); TOTAL BILIRUBIN 0.3 mg/dL (0.2-1.0); TOTAL PROTEIN 6.2 g/dL (6.4-8.2); TROPONIN-I <0.06 ng/mL (<0.06)
[2020-07-26 15:17] LABS: BE(vivo) -6.4 mmol/L (-2 to +3); PCO2 43.2 mmHg (35.0-45.0); PO2 77.5 mmHg (80.0-100.0); pH 7.283 (7.360-7.450)
--- NOTE | 2020-07-26 17:58 | EKG ---
[facility] [place] [address] [place] [address] ELECTROCARDIOGRAM REPORT Name: NOEMY SAUCEDO Room #: 170-1 ADM IN M.R.#: [id number] Admission: 07/26/20 Attend Phys: Irwin Aldridge MD Discharge: Date of : 54 Report #: [id number] THIS REPORT FOR: cc: Anival Chambers MD, Srinath MD Lundgren,Abrahan Del Rosario MD [facility] ~ THIS REPORT FOR: //name// [facility] ED Test Date: 2020-07-26 Test Time: 16:18:53 Pat Name: NOEMY SAUCEDO Department: Room: 170 Gender: M Watchstander: destini : 1950 Requested By: Jaz Guzman Order Number: [id number] MD: Abrahan Johnson Measurements Intervals [place] Rate: 67 P: 36 DC: 177 QRS: -4 QRSD: 114 T: 26 QT: 446 QTc: 471 Interpretive Statements Sinus rhythm Incomplete right bundle branch block Compared to ECG 07/31/2018 06:25:46 No significant change was found Electronically Signed On 07-26-2020 17:58:43 RUBBER WORKER by Abrahan Johnson [email or web address] <ELECTRONICALLY SIGNED> By: Abrahan Johnson MD, FAC 07/26/20 1758 1618 1618 Abrahan Johnson MD, [facility] /EPI
--- NOTE | 2020-07-26 19:56 | NUR ---
Attempted to call report to ICU nurse at this time. Unable to take report
[2020-07-27] VITALS (43 sets, daily range): BP systolic 82–128; BP diastolic 49–81
[2020-07-27 03:19] LABS: HEMATOCRIT 35.9 % (42.0-52.0); HEMOGLOBIN 11.5 gm/dL (14.0-18.0); MCH 29.6 pg (26.0-34.0); MCHC 32.1 g/dL (28.0-37.0); MCV 92.2 fL (80.0-100.0); RBC 3.9 mil/uL (4.50-6.00); RDW 17.3 % (10.5-14.5); WBC 4.9 thou/uL (4.0-11.0)
[2020-07-27 03:30] LABS: FIBRINOGEN 405.1 mg/dL (210-360); PROTIME 10.6 Seconds (9.3-11.4)
[2020-07-27 03:32] LABS: ALBUMIN 2.4 g/dL (3.4-5.0); POTASSIUM 4.8 mmol/L (3.5-5.1); TOTAL BILIRUBIN 0.3 mg/dL (0.2-1.0); TOTAL PROTEIN 5.9 g/dL (6.4-8.2)
[2020-07-27 03:42] LABS: CREATININE 3.5 mg/dL (0.7-1.3)
[2020-07-27 04:45] LABS: BE(vivo) -7.9 mmol/L (-2 to +3); HCO3 19.5 mmol/L (22.0-26.0); PCO2 47.7 mmHg (35.0-45.0); PO2 66.9 mmHg (80.0-100.0); sO2 89.6 % (92.0-98.0)
--- NOTE | 2020-07-27 05:59 | NUR ---
PATIENT ARRIVAL TO UNIT VIA CART FROM ED AT 2039 ON VENTI MASK AT 50%, ABLE TO ANSWER ORIENTATION QUESTIONS TO PERSON, PLACE AND TIME APPROPRIATELY, DROWSY BUT FOLLOWS AND INTERACTS. ATTEMPTED TO CALL EMERGENCY CONTACT CARLA - PT STATES THIS IS BROTHER - BUT NO ANSWER, LEFT HIPPA COMPLIANT MESSAGE. PT ASSESSED APPROXIMATELY 0325, ROUSEABLE, FOLLOWS COMMANDS ANSWERS QUESTIONS APPROPRIATELY AGAIN. AFTER 0 THIS RN ENTERED TO GET RVP, COVID, MRSA SWABS, PATIENT SOMNULENT, DIFFICULT TO ROUSE, STATES "OW" WHEN SWABS OBTAINED BUT THEN PROMPTLY WENT BACK TO SLEEP. ABG OBTAINED, CRITICAL RESULTS NOTED. CALLED TO SPEECH PROFESSOR CASER IN AND [facility]. RETURN CALL FROM [facility] AT 0543, TOLD DR THAT RT PLACED PT ON BIPAP, REPORTED OTHER CRITICAL LABS AND VS. NO NEW ORDERS. ATTEMPTED TO CALL BROTHER BACK AT THIS TIME TO DISCUSS STATUS AND OBTAIN CONSENT FOR CV PLASMA, NO ANSWER. CALL TO [facility] TO MAKE SURE WE HAVE CORRECT NUMBER, PERSON WHO ANSWERED PHONE REQUESTED THAT THIS RN CALL BACK AT 0700 TO SPEAK TO GUEST SERVICES.
--- NOTE | 2020-07-27 08:55 | NUR ---
report received from RULA Pete at shift change. just received n-95 mask for provision of pt care. Dr. Calvert present. Rt in process of obtaining abg's.
[2020-07-27 09:16] LABS: BE(vivo) -8.3 mmol/L (-2 to +3); HCO3 18.6 mmol/L (22.0-26.0); PCO2 43.3 mmHg (35.0-45.0); PO2 100.4 mmHg (80.0-100.0); sO2 96.6 % (92.0-98.0)
--- NOTE | 2020-07-27 11:11 | NUR ---
WOUND/CHRONIC MANAGER NOTE; ASSESSED SKIN/WOUND STATUS AND OSTOMY W/ CLERICAL ASSOCIATE ZO. ILEOSTOMY LLQ ABD, STOMA PINK VIABLE SLIGHTLY BUDDED W/ LIQ BROWN STOOL NOTED, PERISTOMAL EXCORIATION NOTED, NO STING SKIN PREP APPLIED AND 2 PIECE LAKHWINDER CUT TO FIT APPLIANCE W/ ADAPT RING UNDER WAFER, GROIN AREA AGNES, SUGGEST ANTIFUNGAL CREAM AND INTERDRY, BILAT BUTTOCKS AREA W/ SEVERAL SMALL MOSTLY CLOSED SCABBED WOUNDS ALL <.3M IN SIZE, NO DRAINAGE, ZGUARD APPLIED, OSTOMY SUPPLIES LEFT IN ROOM RECOMMENDATIONS; CHANGE POUCH Q 3-5DAYS AND PRN, LAKHWINDER CUT TO FIT W/ ADAPT RING, ZGUARD TO BUTTOCKS AREA BID AND PRN, ANTIFUNGAL CREAM AND INTERDRY TO GROIN CLERICAL ASSOCIATE AWARE
--- NOTE | 2020-07-27 11:30 | NUR ---
CARLA SAUCEDO- BROTHER CALLED INQUIRING REGARDING PT STATUS. 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 DISCUSSED PT STATUS, ON BIPAP WITH 65% FIO2, DESATS WITH ANY ACTIVITY, EXHAUSTED, SLEEPING, BARELY WHISPERS HIS NAME AND DATE OF , NPO. DISCUSSED RISKS AND BENEFITS OF CENTRAL LINE PLACEMENT AND CONVALESCENT PLASMA. TELEPHONE CONSENT OBTAINED FOR BOTH.
--- NOTE | 2020-07-27 14:38 | NUR ---
chart review. unable to visit with rt lalito + [facility] and conserving on ppe. cm left message for osvaldo requesting a call back. cm tried to speak with ltc staff at [facility] and no answer. noted he from ltc, he used to live at [facility], and last time dc from hospital he went skilled at [facility], never as able to return to [facility] or [facility]. has dme at facility if needed. will cont following as needed for dc needs.
--- NOTE | 2020-07-27 17:30 | NUR ---
CENTRAL LINE PLACED AND PLACEMENT CONFIRMED PER CHEST XRAY. CONVALESCENT PLASMA INFUSING. SB, REMAINED NPO, COLOSTOMY WITH GREEN DRAINAGE, ADEQUATE URINE OUTPUT. CARLA- BROTHER CALLED INQUIRING REGARDING PT STATUS, UPDATED.
--- NOTE | 2020-07-27 18:01 | NUR ---
CONSULTED TO PLACE A CENTRAL LINE FOR A PATIENT TRANSFERED TO THE ICU. ORDER AND CONSENT WAS NOTED. THE RIGHT JUGULAR WAS WIDLEY PATENT. A #6F TRIPLE LUMEN CENTRAL LINE WAS PLACED PER HOSPITAL POLICY AFTER A BEDSIDE TIMOUT WAS COMPLETED. THE 25CM LINE WAS ADVANCED WITH SOME RESISTANCE. A STAT CHEST XRAY CONFIRMED LINE IN MID SVC AND IN GOOD POSITION FOR USE
--- NOTE | 2020-07-27 19:30 | NUR ---
REPORT TO RULA PETERSON.
[2020-07-28] VITALS (20 sets, daily range): BP systolic 83–136; BP diastolic 52–86
[2020-07-28 04:34] LABS: ABSOLUTE NEUTROPHILS 5.7 thou/uL (1.4-8.2); BASOPHILS 0.1 % (0.0-2.0); HEMATOCRIT 34.4 % (42.0-52.0); HEMOGLOBIN 11.2 gm/dL (14.0-18.0); LYMPHOCYTES 2.6 % (24.0-44.0); MCH 29.8 pg (26.0-34.0); MCHC 32.6 g/dL (28.0-37.0); MCV 91.5 fL (80.0-100.0); MONOCYTES 2.5 % (1.0-8.0); PLATELET COUNT 151 thou/uL (150-400); POLYS 94.8 % (36.0-66.0); RBC 3.76 mil/uL (4.50-6.00)
[2020-07-28 04:48] LABS: ALBUMIN 2.2 g/dL (3.4-5.0); CALCIUM 7.3 mg/dL (8.5-10.1); POTASSIUM 4.1 mmol/L (3.5-5.1); TOTAL BILIRUBIN 0.2 mg/dL (0.2-1.0); TOTAL PROTEIN 5.5 g/dL (6.4-8.2)
[2020-07-28 04:57] LABS: CREATININE 2.2 mg/dL (0.7-1.3)
--- NOTE | 2020-07-28 06:06 | NUR ---
ORIENTEDX3, DROWSY, BUT WAKES HOLD A CONVERSATION, PLEASANT AND COOPERATIVE, FOLLOWS COMMANDS. RESTING QUIETLY FOR MOST OF SHIFT. VSS
--- NOTE | 2020-07-28 14:17 | NUR ---
chart review, covid +, requiring resp needs ie bipap and ventmask. spoke with son osvaldo, no question or concerns voice. no anticipated dc over the weekend. will cont following as needed for dc needs.
--- NOTE | 2020-07-28 17:16 | NUR ---
FAXED CLINICAL UPDATE TOO PHAM/KARLOS RECEIVED CONFIRMATION WILL F/U WITH FACILITY ON FRIDAY.
--- NOTE | 2020-07-28 18:45 | NUR ---
PROGRESSING WITH FIO2 DOWN TO 40% ON BIPAP. TAKING DEEP BREATHS WHEN REQUESTED PER RN. PT SPONTANEOUSLY OPENING EYES, ALERT, ORIENTED. IV THIAMINE AND ASCORBIC ACID REQUESTED PER HOLD ACKNOWLEDGE FOR PHARMACY. MEDICATION STILL NOT AVAILABLE AT THIS TIME. UPDATED RULA MENDEZ.
[2020-07-29] VITALS (17 sets, daily range): BP systolic 90–159; BP diastolic 68–98
[2020-07-29 04:21] LABS: ALBUMIN 2.1 g/dL (3.4-5.0); CALCIUM 6.9 mg/dL (8.5-10.1); CREATININE 1.9 mg/dL (0.7-1.3); POTASSIUM 3.6 mmol/L (3.5-5.1); TOTAL BILIRUBIN 0.2 mg/dL (0.2-1.0); TOTAL PROTEIN 5.3 g/dL (6.4-8.2)
[2020-07-29 04:28] LABS: PROTIME 10.1 Seconds (9.3-11.4)
[2020-07-29 04:47] LABS: ABSOLUTE NEUTROPHILS 5.8 thou/uL (1.4-8.2); BASOPHILS 0.1 % (0.0-2.0); HEMATOCRIT 32.5 % (42.0-52.0); HEMOGLOBIN 10.7 gm/dL (14.0-18.0); MCH 29.7 pg (26.0-34.0); MCHC 32.8 g/dL (28.0-37.0); MCV 90.6 fL (80.0-100.0); MONOCYTES 5.6 % (1.0-8.0); PLATELET COUNT 138 thou/uL (150-400); POLYS 90.3 % (36.0-66.0); RBC 3.59 mil/uL (4.50-6.00); RDW 16.7 % (10.5-14.5); WBC 6.5 thou/uL (4.0-11.0)
[2020-07-29 11:17] LABS: BE(vivo) -4.7 mmol/L (-2 to +3); HCO3 19.7 mmol/L (22.0-26.0); PCO2 34.2 mmHg (35.0-45.0); PO2 100.5 mmHg (80.0-100.0); pH 7.378 (7.360-7.450); sO2 97.5 % (92.0-98.0)
--- NOTE | 2020-07-29 16:14 | NUR ---
PT RESTING COMFORTABLY FOR MAJORITY OF DAY. STATED TO NOT HAVE ANY VISUAL/AUDITORY HALLUCINATIONS TODAY. PT IS PLEASENTLY CONFUSED. AFEBRILE, POLYUREA, NO BM, CENTRAL LINE IN PLACE, BIPAP PRN, NOW ON NASAL CANNULA 5L. HAS TRANSFER ORDERS TO 3W. PT AND PT'S BROTHER HAVE BEEN UPDATED AND EDUCATED ON POC AND PT CONDITION.
--- NOTE | 2020-07-29 20:00 | NUR ---
ASSUMED CARE OF A DELIGHTFUL LITTLE GENTLEMAN. AWAKE AND ALERT. FOLLOWS COMMANDS. RESTLESS AT TIMES. O2 SAT 98 % ON 5 L NC. REMAINS COVID POSITIVE ILEOSTOMY INTACT WITH GREEN/BROWN DRG. EXCELLENT URINARY OUTPUT. AWAITING A BED ON . PROGRESSING TOWARD GOALS. WILL CONBT TO MONITOR.
--- NOTE | 2020-07-29 23:20 | NUR ---
PT TX TO 3 WEST ROOM 355 WITH RN
--- NOTE | 2020-07-29 23:54 | NUR ---
PHONE REPORT FROM RULA MORRIS AT 2230; PT TRANSPORTED BY BED TO [facility] AT 2320. PT PLEASANT AND COOPERATIVE W/ CARES, NICE IN PLACE DRAINING LIGHT YELLOW URINE, RLQ ILEOSTOMY DRAINING DARK GREEN/BROWN LIQUID. PT ON 6L O2 FOR TRANSPORT R/T EXERTION OF MOVING HIMSELF TO THE BED, HOB>30 DEG TO EASE BREATHING; LUNGS VERY WHEEZY W/ CRACKLES IN BASES. OBTAINED ORDER FOR RT TREATMENTS Q4 PRN. PPN AND VIT C INFUSING VIA RIGHT IJ. WILL CONTINUE TO MONITOR.
[2020-07-30 04:12] VITALS: BP 125/75
[2020-07-30 07:15] VITALS: BP 110/82
[2020-07-30 07:35] VITALS: BP 131/70
[2020-07-30 11:08] VITALS: BP 146/89
[2020-07-30 15:58] VITALS: BP 130/87; BP 134/100
--- NOTE | 2020-07-30 18:28 | NUR ---
ASSUMED PATIENT CARE AT 0700. A/O X3. RESTLESS SOMETIMES. MORE ALERT. TITRATED 02 TO 6L TOLERATED WELL. VSS. SLOWLY TOWARDS POC GOALS.
[2020-07-30 19:47] VITALS: BP 144/90
[2020-07-31 04:43] VITALS: BP 129/58
[2020-07-31 05:46] LABS: ABSOLUTE NEUTROPHILS 4.1 thou/uL (1.4-8.2); BASOPHILS 0.1 % (0.0-2.0); HEMATOCRIT 33.2 % (42.0-52.0); HEMOGLOBIN 11.1 gm/dL (14.0-18.0); LYMPHOCYTES 4.5 % (24.0-44.0); MCH 29.9 pg (26.0-34.0); MCHC 33.4 g/dL (28.0-37.0); MCV 89.7 fL (80.0-100.0); MONOCYTES 7.7 % (1.0-8.0); PLATELET COUNT 133 thou/uL (150-400); POLYS 87.7 % (36.0-66.0); RDW 16.3 % (10.5-14.5); WBC 4.7 thou/uL (4.0-11.0)
[2020-07-31 06:02] LABS: ALBUMIN 2.3 g/dL (3.4-5.0); CALCIUM 7.8 mg/dL (8.5-10.1); CREATININE 1.5 mg/dL (0.7-1.3); MAGNESIUM 1.5 mg/dL (1.8-2.4); PHOSPHORUS 3.4 mg/dL (2.5-4.9); POTASSIUM 3.9 mmol/L (3.5-5.1); TOTAL BILIRUBIN 0.4 mg/dL (0.2-1.0); TOTAL PROTEIN 5.3 g/dL (6.4-8.2)
--- NOTE | 2020-07-31 06:33 | NUR ---
ASSUMED CARE AT 1900. PT RESTLESS AND FIDGETY, FREQ TAKING OF NC AND VERY SOB. LUNGS VERY WHEEZY SOUNDING; SWITCHED PT TO BIPAP AT 2140, BUT HE CONTINUED TO MESS WITH THAT MOST OF THE NIGHT. GAVE A PRN DOSE HALDOL BUT IT DIDN'T HELP THE RESTLESSNESS MUCH. SWITCHED BACK TO NC 7L AT 0300 WITH FREQ CHECKS TO MAKE SURE NC WAS STILL ON. IV ABX AND PPN INFUSING OVERNIGHT; LARGE AMOUNT OF URINE OUT OF NICE. HAS BEEN SB IN 50'S MUCH OF NIGHT, OFTEN DROPPING INTO LOW-MID 40'S WELL. NO OTHER CONCERNS, WILL CONTINUE TO MONITOR.
[2020-07-31 09:07] VITALS: BP 132/81
--- NOTE | 2020-07-31 09:20 | NUR ---
WOUND/OSTOMY CARE; ALERT, COOPERATIVE, POUCH EDGES LOOSE, ILEOSTOMY STOMA PINKISH/RED VIABLE BUDDED W/ DARKISH BROWN/GREEN LIQ STOOL, PERISTOMAL SKIN INTACT, NEW POUCH LAKHWINDER CUT TO FIT, APPLIED W/ ADAPT RING UNDER WAFER, NOTICED IV OUT IN BED? PT UNSURE WHEN IV GOT PULLED, VP PRODUCT NOTIFIED, OSTOMY SUPPLIES LEFT IN ROOM, BUTTOCK AREA HEALING, ONLY ONE AREA SCABBED WOUND NOTED, ZGUARD APPLIED RECOMMENDATIONS; CONT POC, CHANGE POUCH Q 3-5 DAYS AND PRN, EMPTY PRN, ZGUARD TO BUTTOCK AREA VP PRODUCT AWARE
--- NOTE | 2020-07-31 10:38 | NUR ---
NOTED PATIENT PULLED CENTRAL LINE. O2 OUT AT 0900. ALERT, AGITATED PULLING EVERYTHING. RESTRAINT ORDERED AND UPDATED WITH FAMILY CARLA. WILL REPLACE CENTRAL LINE AND KEEP MONITOR.
[2020-07-31 11:34] VITALS: BP 129/82
--- NOTE | 2020-07-31 15:04 | NUR ---
MARCELINO reviewed chart and spoke with nursing and attending physician. Pt was transferred to from ICU. Pt remains in Enhanced Isolation due to COVID-19. Pt is afebrile and requiring 7L of O2. Pt is on IV abx and IV steroids. Pt is completing course of Remdesivir. Pt is in bilateral wrist restraints due to pulling at lines. Plan is for pt to return to [facility] when medically stable. Pt will need therapy evals ordered when able to participate. Insurance authorization need for pt to return using his skilled benefit. MARCELINO is following to assist as needed with discharge planning.
[2020-07-31 15:37] VITALS: BP 132/85
[2020-07-31 19:50] VITALS: BP 129/80
[2020-08-01 03:53] VITALS: BP 141/87
[2020-08-01 06:30] LABS: HEMATOCRIT 36.8 % (42.0-52.0); MCH 29.2 pg (26.0-34.0); MCHC 32.6 g/dL (28.0-37.0); MCV 89.7 fL (80.0-100.0); RBC 4.1 mil/uL (4.50-6.00); WBC 4.8 thou/uL (4.0-11.0)
[2020-08-01 06:56] LABS: ALBUMIN 2.7 g/dL (3.4-5.0); CREATININE 1.7 mg/dL (0.7-1.3); DIRECT BILIRUBIN 0.2 mg/dL (<0.1-0.2); PHOSPHORUS 2.7 mg/dL (2.5-4.9); POTASSIUM 3.4 mmol/L (3.5-5.1); TOTAL BILIRUBIN 0.6 mg/dL (0.2-1.0); TOTAL PROTEIN 6.2 g/dL (6.4-8.2)
[2020-08-01 07:24] LABS: CALCIUM 8.2 mg/dL (8.5-10.1)
[2020-08-01 07:42] VITALS: BP 143/77
--- NOTE | 2020-08-01 07:43 | NUR ---
ASSUMED CARE AT 1900. PT ANXIOUS AND RESTLESS, SLIGHTLY MORE CONFUSED THAN PREVIOUS SHIFT. HAS CONGESTED, WET COUGH; LUNGS STILL VERY WHEEZY, WITH CRACKLES IN BASES. GAVE ONE DOSE IV LASIX OVERNIGHT; 500 ML URINE OUT PRIOR TO LASIX, 600 ML OUT AFTER. GAVE ONE DOSE PRN MED FOR AGITATION. PT CONTINUED TO PULL OFF O2 ALL NIGHT, IN ROOM FREQ TO REPLACE O2 AND TELE LEADS. NO OTHER CONCERNS, SHIFT REPORT GIVEN 0700.
[2020-08-01 15:16] VITALS: BP 131/87
[2020-08-01 21:28] VITALS: BP 146/94
[2020-08-02 01:00] LABS: CALCIUM 7.3 mg/dL (8.5-10.1); CREATININE 1.7 mg/dL (0.7-1.3)
--- NOTE | 2020-08-02 05:48 | NUR ---
ASSUMED CARE AT 1900, ASSESSMENT COMPLETED. PT MORE AWAKE AND COHERENT AT START OF SHIFT, STILL SOMEWHAT RESTLESS OVERNIGHT. O2 SATS UPPER 90'S ON 6L WHILE AWAKE AND NOT FIDGETY; RT LOWERED O2 TO 4L, BUT PT TOOK O2 OFF SEVERAL TIMES OVER NIGHT AND WOULDN'T COME ABOVE 87% ONCE BACK ON 4L D/T WHEEZING AND MOVING AROUND, O2 INCREASED BACK TO 6L AND SATS RETURNED TO MID 90'S. NOTED TO HAVE A CONGESTED COUGH AND PT REPORTED A LOT OF SPUTUM PRODUCTION, OBTAINED ORDER TO START MUCINEX. NO OTHER CONCERNS, WILL CONTINUE TO MONITOR.
[2020-08-02 07:33] VITALS: BP 138/70
[2020-08-02 08:10] LABS: ALBUMIN 2.3 g/dL (3.4-5.0); CALCIUM 7.4 mg/dL (8.5-10.1); CREATININE 1.5 mg/dL (0.7-1.3); DIRECT BILIRUBIN 0.2 mg/dL (<0.1-0.2); POTASSIUM 3.7 mmol/L (3.5-5.1); TOTAL BILIRUBIN 0.5 mg/dL (0.2-1.0); TOTAL PROTEIN 5.4 g/dL (6.4-8.2)
--- NOTE | 2020-08-02 09:58 | NUR ---
WOUND CARE F/U; THE AREAS TO THE BILATERAL BUTTOCKS AND GROIN ARE HEALED. NO NEED TO FOLLOW THIOS PATIENT RECONSULT IF NEEDED. DISCUSSED WITH RN
--- NOTE | 2020-08-02 10:40 | NUR ---
Clinical update faxed to Keyla in admissions at [facility]. DC timeframe is uncertain. They will need therapy evals and to submit for skilled auth once pt is medically ready for dc. Unit CM updated as well.
[2020-08-02 15:21] VITALS: BP 131/88
--- NOTE | 2020-08-02 18:45 | NUR ---
ASSUMED PATIENT CARE AT 0700. A/O X3. TOLERATED ON 6L/NC. GOOD APPATITE. SLOWLY TOWARDS POC GOALS.
[2020-08-02 19:39] VITALS: BP 139/83
--- NOTE | 2020-08-03 03:47 | NUR ---
PATIENT ASSESSED AND IS ALERT X 4. SKIN WARM AND DRY. RESP EVEN AND UNLABORED. MOVES ALL OVER IN THE BED. ILEOSTOMY BAG CAME OFF X 2.REPLACED AND CLEANED UP. 02 ON AT 6LNC. LUNGS VERY COURSE. PERIAREA RED AND PLACED NYSTATIN ON AREA. COCCYX AREA IS SLIGHLY RED. TURNS PER SELF ALL THE TIMES. 2+EDEMA NOTED IN LOWER LEGS. PT/OT ORDERED. NICE PATENT WITH VIDA URINE NOTED. IV IN RIGHT UPPER ARMS FLUSHES WELL. CONT PLAN OF CARE. DENIES ANY PAIN OR SOA.
[2020-08-03 06:30] VITALS: BP 128/86
[2020-08-03 09:04] VITALS: BP 114/82
--- NOTE | 2020-08-03 09:46 | NUR ---
OSTOMY CARE; POUCH INTACT BUT EDGES VERY SOILED, SMELTING ENGINEER SAMUEL STATES PT LAYING ON SIDE AND POUCH LEAKED LAST JOYCELYN, ONLY POUCH CHANGED, NOT WAFER, WAFER CHANGED W/ ADAPT RING APPLIED, NEW POUCH APPLIED, STOMA PINK VIABLE BUDDED W/ LOOSE BROWN STOOL NOTED, AWAKE, COOPERATIVE, SOME CONFUSION, SUPPLIES PLACED AT BS, WILL CONT TO FOLLOW RECOMMENDATIONS; CHANGE APPLIANCE Q3-5 DAYS, EMPTY PRN, USE HOLLSITER CUT TO FIT APPLIANCE SMELTING ENGINEER AWARE
--- NOTE | 2020-08-03 16:21 | NUR ---
MARCELINO reviewed chart and spoke with nursing and attending physician. Pt remains in Enhanced Isolation due to COVID-19. Pt is afebrile and on 6L of O2. Pt is on IV abx and IV steroids. PT/OT ordered to evaluate pt. Will need insurance authorization for skilled level of care. MARCELINO faxed clinical updates to [facility] for review. MARCELINO is following to assist as needed with discharge planning.
[2020-08-03 17:03] VITALS: BP 139/98
--- NOTE | 2020-08-03 19:09 | NUR ---
ASSUMED PATIENT CARE AT 0700. A/0 X3. TOLERATED ON 5L/NC. WORKED WITH PT/OT. SLOWLY TOWARDS POC GOALS.
[2020-08-03 20:14] VITALS: BP 148/90
[2020-08-03 20:58] VITALS: BP 160/90
--- NOTE | 2020-08-03 23:16 | NUR ---
PT RESTING IN BED, FOWLERS POSITION. SOA WITH CONVERSATION. CHEERFUL TALKATIVE. O2 PER NC 6L, CONTINUOUS PULSE OX INTACT. PT COMPLIANT WITH MEDS AND CALLS FOR ASSISTANCE, BED ALARM. FLUSHED AND BRUISED SKIN.
--- NOTE | 2020-08-04 04:25 | NUR ---
PT OFTEN FALLS ASLEEP AND NC OXYGEN BECOMES REMOVED. CONTINUOUS PULSE INTACT.
[2020-08-04 04:48] VITALS: BP 133/71
[2020-08-04 07:54] VITALS: BP 123/71
[2020-08-04 15:32] VITALS: BP 123/60
--- NOTE | 2020-08-04 15:41 | NUR ---
MARCELINO reviewed chart and spoke with nursing and attending physician. Pt remains in Enhanced Isolation due to COVID-19. Pt is afebrile and on 6L of O2. Pt is on IV abx and IV steroids. No weekend discharge planned. Will need insurance authorization for pt to return using his skilled benefit. Updated clinical and therapy notes will need to be faxed to [facility] on Friday for review and to submit to insurance. MARCELINO is following to assist as needed with discharge planning.
[2020-08-04 16:46] LABS: ABSOLUTE NEUTROPHILS 12.3 thou/uL (1.4-8.2); BASOPHILS 0.1 % (0.0-2.0); HEMATOCRIT 38.2 % (42.0-52.0); LYMPHOCYTES 1.5 % (24.0-44.0); MCH 28.7 pg (26.0-34.0); MCHC 31.5 g/dL (28.0-37.0); MONOCYTES 5.8 % (1.0-8.0); PLATELET COUNT 165 thou/uL (150-400); POLYS 92.6 % (36.0-66.0); RDW 16.7 % (10.5-14.5); WBC 13.3 thou/uL (4.0-11.0)
[2020-08-04 17:00] LABS: ALBUMIN 2.5 g/dL (3.4-5.0); CALCIUM 8.2 mg/dL (8.5-10.1); CREATININE 1.6 mg/dL (0.7-1.3); POTASSIUM 4.9 mmol/L (3.5-5.1); TOTAL BILIRUBIN 0.5 mg/dL (0.2-1.0); TOTAL PROTEIN 5.3 g/dL (6.4-8.2)
--- NOTE | 2020-08-04 17:47 | NUR ---
ASSUMD PATIENT CARE AT 0700. A/ 2-3. SOB WITH EXERTION. ON . NOT TOWARDS POC GOALS.
[2020-08-04 19:30] LABS: URINE BILIRUBIN NEGATIVE (Negative); URINE BLOOD NEGATIVE (Negative); URINE CLARITY CLEAR; URINE COLOR YELLOW; URINE GLUCOSE-RANDOM* NEGATIVE (Negative); URINE KETONES NEGATIVE (Negative); URINE LEUKOCYTES-REFLEX NEGATIVE (Negative); URINE NITRITE-REFLEX NEGATIVE (Negative); URINE PROTEIN (DIPSTICK) NEGATIVE (Negative); URINE UROBILINOGEN 0.2 E.U./dl (0.2-1.0)
[2020-08-04 19:58] VITALS: BP 115/84
[2020-08-04 21:56] LABS: BE(vivo) 0.9 mmol/L (-2 to +3); HCO3 24.6 mmol/L (22.0-26.0); PCO2 36.1 mmHg (35.0-45.0); PO2 62.7 mmHg (80.0-100.0); pH 7.451 (7.360-7.450); sO2 93.1 % (92.0-98.0)
[2020-08-05] VITALS (9 sets, daily range): BP systolic 49–141; BP diastolic 35–87
--- NOTE | 2020-08-05 03:16 | NUR ---
O2 SAT 88 ON 6L. RESPIRATORY CONTACTED INCREASED TO 8L.
--- NOTE | 2020-08-05 03:28 | NUR ---
O2 SAT REMAINING LOW, RESPIRATORY CONTACTED. THEY ARE COMING TO SEE THE PT.
--- NOTE | 2020-08-05 03:29 | NUR ---
BEGINNING OF SHIFT PT RESTING IN BED. CONTINUOUS PULSE OX ON. O2 NC 6L. PT LUNGS WET AND COARSE, RESPIRATORY AND PROVIDER LEARNING CENTER COORDINATOR UPDATED. ABG OBTAINED. PT TALKATIVE AND CHEERFUL WHEN AWAKE AND INTERACTING WITH STAFF. PROVIDED HS SNACK. BLE EDEMA. NICE TO DD, ILEOSTOMY ATTACHED. BED ALARM ON.
--- NOTE | 2020-08-05 04:13 | NUR ---
PT PLACED ON BIPAP AT 0400. RESPIRATORY REQUESTED PROVIDER BE ASKED FOR DIURETIC ORDER. IMPLEMENTATION SERVICES ANALYST UPDATED. PROVIDER CALLED.
--- NOTE | 2020-08-05 15:42 | NUR ---
ASSUMED CARE OF PT AT 0700. PT ON BIPAP, ABLE TO MAKE SIMPLE CONVERSATION. RESTLESS AND ANXIOUS, FREQUENTLY TURNING IN BED AND REMOVING BIPAP. LOW GRADE TEMP THIS AM - TYLENOL PROVIDED. ANXIETY MEDS GIVEN PRN FOR AGITATION - PARTIAL RELIEF. WCM.
[2020-08-05 20:01] LABS: BE(vivo) -4.3 mmol/L (-2 to +3); HCO3 21.6 mmol/L (22.0-26.0); PCO2 42.9 mmHg (35.0-45.0); PO2 58.8 mmHg (80.0-100.0); sO2 88.4 % (92.0-98.0)
--- NOTE | 2020-08-05 20:58 | NUR ---
SEE MECHANICAL SUPERVISOR FLOWSHEET.
--- NOTE | 2020-08-05 21:33 | NUR ---
BEGINNING OF SHIFT RR INCREASED LOW O2 SAT ON BIPAP. RAPID RESPONSE CALLED. PT RECEIVED ZYPREXA LASIX MORPHINE. RR REMAINS INCREASED O2 SAT 88% REMAINING. RESTRAINTS. PROVIDER CONTACTED FOR ABOVE ORDERS. PULDiana ZAPATA BEING CALLED TO UPDATE RE TRANSFER TO ICU. BROTHER MEDICAL DPOA CONTACTED RE CHANGE IN STATUS, AND SERIOUSNESS OF RESPIRATORY STATUS. BROTHER IS CALLING REMAINING FAMILY MEMBERS TO DISCUSS CODE STATUS,THERE ARE 6 BROTHERS. LUNGS WET COARSE, USING ALL ACCESSORY MUSCLES WITH RESPIRATIONS. SCDS NICE INTACT. BED ALARM ON.
--- NOTE | 2020-08-05 22:24 | NUR ---
PT BEING TRANSFERRED TO ICU, REPORT CALLED. FAMILY CARLA ALMAZAN CONTACTED RE TRANSFER. DISCUSSED WITH BROTHER CODE STATUS, BROTHER STATED THE FAMILY IS WANTING TO HAVE PT IN ICU AND TREATED AND WILL DECIDE TO CHANGE CODE STATUS AFTER FURTHER TIME AND INFORMATION IS RECEIVED BY ICU. NO PO MEDS GIVEN.
--- NOTE | 2020-08-05 23:16 | NUR ---
2114- Patient arrived around 2100. Nurse performed assessment. Patient struggling to breath. O2 saturation 88%on bipap. Respiratory rate is 40's-50's. Nurse talked with Dr. Brasewll in regards to patient status, order to ask ED Physician to come intubate patient. This call was placed, ED staff unable. Dr. Braswell on his way to intubate patient. Another RN called family.
[2020-08-06] VITALS (132 sets, daily range): BP systolic 68–150; BP diastolic 29–91
--- NOTE | 2020-08-06 01:28 | NUR ---
DR. CLARKE was here attempting to place a central line. Now ED physician here to attempt to place a central line. Propofol off per Dr. Clarke, switching to fentanyl and versed gtts.
--- NOTE | 2020-08-06 02:06 | NUR ---
Right IJ confirmation of placement recieved by Dr. Braswell and ED physician.
[2020-08-06 02:33] LABS: PROTIME 10.4 Seconds (9.3-11.4)
[2020-08-06 02:38] LABS: FIBRINOGEN 530.1 mg/dL (210-360)
[2020-08-06 02:39] LABS: ALBUMIN 2.1 g/dL (3.4-5.0); CALCIUM 7.4 mg/dL (8.5-10.1); POTASSIUM 4.6 mmol/L (3.5-5.1); TOTAL BILIRUBIN 0.7 mg/dL (0.2-1.0); TOTAL PROTEIN 5.7 g/dL (6.4-8.2)
[2020-08-06 04:22] LABS: BE(vivo) -4.4 mmol/L (-2 to +3); HCO3 21.7 mmol/L (22.0-26.0); PCO2 43.6 mmHg (35.0-45.0); PO2 82.4 mmHg (80.0-100.0); sO2 95.2 % (92.0-98.0)
[2020-08-06 04:23] LABS: pH 7.314 (7.360-7.450)
[2020-08-06 06:37] LABS: ABSOLUTE NEUTROPHILS 15.5 thou/uL (1.4-8.2); BASOPHILS 0.1 % (0.0-2.0); HEMOGLOBIN 10.5 gm/dL (14.0-18.0); LYMPHOCYTES 0.2 % (24.0-44.0); MCH 29.3 pg (26.0-34.0); MCV 91.7 fL (80.0-100.0); MONOCYTES 1.7 % (1.0-8.0); PLATELET COUNT 148 thou/uL (150-400); RDW 17.3 % (10.5-14.5); WBC 15.8 thou/uL (4.0-11.0)
[2020-08-06 06:41] LABS: URINE BILIRUBIN NEGATIVE (Negative); URINE BLOOD 3+ (Negative); URINE CLARITY SL CLOUDY; URINE COLOR YELLOW; URINE GLUCOSE-RANDOM* NEGATIVE (Negative); URINE KETONES NEGATIVE (Negative); URINE LEUKOCYTES-REFLEX NEGATIVE (Negative); URINE NITRITE-REFLEX NEGATIVE (Negative); URINE PROTEIN (DIPSTICK) TRACE (Negative); URINE SPECIFIC GRAVITY >= 1.030 (1.005-1.035); URINE UROBILINOGEN 0.2 E.U./dl (0.2-1.0)
[2020-08-06 06:52] LABS: AMORPHOUS URATES Moderate /LPF (None Seen); BACTERIA-REFLEX 1-9 Few /HPF (None Seen); FINE GRANULAR CASTS 0-3 Few /LPF (None Seen); SQUAMOUS None Seen /LPF (0-3); URINE WBC-REFLEX None Seen /HPF (0-5)
--- NOTE | 2020-08-06 09:35 | NUR ---
Patient not progressing towards plan of care as evidenced by new need for intubation last night, sedation, fever this morning, and instability with even slight turns. Nurse informed Dr. Braswell of patient morning ABG values. Dr. Braswell was here for a while last night with the patient.
--- NOTE | 2020-08-06 11:00 | NUR ---
osvaldo blanchard- brother called to inquire regarding pt status. updated- pt on vent with sedation/pain meds, therefore pt unresponsive. fi02-80% and peep-12. medication infusing for blood pressure support. rn offered code status options for (1)allowing natural or (2)providing cpr/cardiac medications in event of cardiac demise. he stated that he wanted to allow a natural , no cpr or medications. dr. kurtz notified.
--- NOTE | 2020-08-06 19:15 | NUR ---
urine output low, spoke with dr. kurtz and fluid bolus infusing. repositioned pt in bed. when quickly changing the levophed from single to quad strength, pt's hr decreased to 41. fentanyl and versed off. increased levophed to briefly 20mcg/min, then 10 mcg/min. pt dusky red/blue in face, labored breathing, no secretions per ett. pt repositioned for breathing comfort again since unable to tolerate left side. increased to 100% fi02, peep-14 with resp therapy present. called osvaldo blanchard, mathewer to update on pt status including low urine output, increasing on 02 vent requirement, no progress today.
[2020-08-07] VITALS (112 sets, daily range): BP systolic 89–126; BP diastolic 52–79
--- NOTE | 2020-08-07 06:50 | NUR ---
SEE infibond FOR ASSESMENT. PT SEDATED, NO VACATION UNABLE TO TOLERATE WITH BEING ON 100 FI02 AND 12 PEEP. DESAT WITH TURNING. LS-DIMINISHED ON RT >LT. NOT PROGRESSING TOWARD GOALS. CONT WITH ENHANCED PRECAUTIONS, PPE PER PROTOCOL. CONT PLAN OF CARE
[2020-08-07 19:21] LABS: ABSOLUTE NEUTROPHILS 8.7 thou/uL (1.4-8.2); BASOPHILS 0.2 % (0.0-2.0); HEMATOCRIT 27.5 % (42.0-52.0); LYMPHOCYTES 0.3 % (24.0-44.0); MCH 30.1 pg (26.0-34.0); MCHC 32.9 g/dL (28.0-37.0); MCV 91.6 fL (80.0-100.0); MONOCYTES 1.2 % (1.0-8.0); PLATELET COUNT 116 thou/uL (150-400); POLYS 98.3 % (36.0-66.0); RDW 17.6 % (10.5-14.5); WBC 8.8 thou/uL (4.0-11.0)
[2020-08-07 19:31] LABS: CALCIUM 6.9 mg/dL (8.5-10.1); POTASSIUM 4.4 mmol/L (3.5-5.1)
[2020-08-07 19:35] LABS: CREATININE 4.1 mg/dL (0.7-1.3)
[2020-08-08] VITALS (24 sets, daily range): BP systolic 82–137; BP diastolic 44–77
--- NOTE | 2020-08-08 08:58 | NUR ---
OSTOMY CARE; LIMITED ASSESSMENT DUE TO COVID RESTRICTIONS, DISCUSSED STATUS W/ WAYLON ELECTRICAL WIRING LINEMAN, STATES POUCH INTACT, NO LEAKAGE, SCANT OUTPUT YESTERDAY, SUPPLIES AT BS, WILL CONT TO FOLLOW PRN
[2020-08-08 10:35] LABS: ALBUMIN 2.2 g/dL (3.4-5.0); CALCIUM 6.8 mg/dL (8.5-10.1); CREATININE 4.6 mg/dL (0.7-1.3); POTASSIUM 4.1 mmol/L (3.5-5.1); TOTAL BILIRUBIN 1.1 mg/dL (0.2-1.0); TOTAL PROTEIN 5.8 g/dL (6.4-8.2)
--- NOTE | 2020-08-08 13:19 | NUR ---
rec nepro 35ml/hr until renal function improves then transition to vital high protein at 55ml/hr
--- NOTE | 2020-08-08 17:54 | NUR ---
chart review. he remains on vent, with nutritional support. COVID +. he from [facility] . will cont following as needed for dc needs.
--- NOTE | 2020-08-09 00:35 | NUR ---
>>>1900 BEDSIDE SHIFT REPORT RECEIVED, CARE ASSUMED. PT CONTINUES ON VENT SETTINGS, PRESSURE CONTROL WITH FIO2 AT 100%, PEEP 12 AND RATE OF 24. NO RESPIRATORY DISTRESS NOTED. >>>0 ASSESSMENTS DONE, NO SEDATION VACATION DONE. PT ON PRESSURE CONTROL, FIO2 OF 100% WITH PEEP 12. WILL CONTINUE TO MONITOR.
[2020-08-09 04:57] LABS: ABSOLUTE NEUTROPHILS 8.4 thou/uL (1.4-8.2); BASOPHILS 0.1 % (0.0-2.0); HEMATOCRIT 26.2 % (42.0-52.0); HEMOGLOBIN 8.8 gm/dL (14.0-18.0); LYMPHOCYTES 0.8 % (24.0-44.0); MCH 30.3 pg (26.0-34.0); MCHC 33.6 g/dL (28.0-37.0); MCV 90.2 fL (80.0-100.0); MONOCYTES 2.2 % (1.0-8.0); PLATELET COUNT 109 thou/uL (150-400); POLYS 96.9 % (36.0-66.0); RDW 17.6 % (10.5-14.5); WBC 8.7 thou/uL (4.0-11.0)
--- NOTE | 2020-08-09 19:18 | NUR ---
ASSUMED CARE OF PT AT 0700. PT INTUBATED AND SEDATED. TEX CARMONA TO DD. SPOKE TO PT SON CARLA THIS AFTERNOON TO UPDATE ON CARE. WILL CONTINUE TO MONITOR.
[2020-08-10] VITALS (70 sets, daily range): BP systolic 53–121; BP diastolic 17–63
--- NOTE | 2020-08-10 10:33 | NUR ---
ON THE VENT SEDATED, TITRATING SEDATION PATIENT TOLERATES. ON LEVO FOR BP SUPPORT. PATIENT NOT ABLE TO TOLERATE TURN OR EVEN ORAL CARE AND SUCTIONING (DESATURATES EASILY AND TAKES LONG TIME TO RECOVER) CONTINUES TO USE FIO2 100% AND PEEP 12. TOLERATING TUBEFEEDING WITH MINIMAL RESIDUALS. LANCE DODSON CALLED AND STATED HE WOULD CALL PATIENT'S SON AND UPDATE HIM. WILL CONTINUE WITH POC.
--- NOTE | 2020-08-10 14:29 | NUR ---
PATIENT'S BROTHER CALLED AND ARRANGED TIME FOR FACETIME LATER TODAY, WILL ALSO CALL OTHER BROTHER IN [place] TO SET UP A TIME FOR HIM TO FACETLIONEL.
--- NOTE | 2020-08-10 18:26 | NUR ---
PATIENT'S BP STARTED TO DECLINE DESPITE LEVO GTT, ABLE TO FACETIME PATIENT'S BROTHERS CARLA AND ISABEL, AND SHORTLY THEREAFTER PATIENT BECAME BRADYCARDIC AND THEN WENT ASYSTOLE ON THE MONITOR, UPON ASSESSING PATIENT, PATIENT FOUND WITHOUT A PULSE, PRONOUNCED BY 2RNS AND DR. CASTILLO AND ALL CONSULTS NOTIFIED. FAMILY, MTN, MANAGER MECHANICAL ALL NOTIFIED. BELONGINGS SENT WITH BODY TO [facility] BY SECURITY AND INFO OBTAINED FROM FAMILY.
== END 2020-08-10 16:20 | DRG 870 ==
LOC: ER 14:18 → EROBS 17:13 → ICU 17:13 → 3W 07-29 23:04 → ICU 08-05 22:51
PROVIDERS: Internal Medicine; Internal Medicine Pulmonary Disease; Nurse Practitioner Family; Pediatrics; Psychiatry & Neurology Psychiatry; Specialist; Student in an Organized Health Care Education/Training Program; ADMIT Hospitalist; ATTEND Hospitalist
DX: A41.89 Other specified sepsis (principal); U07.1 COVID-19; J12.89 Other viral pneumonia; J96.01 Acute respiratory failure with hypoxia; E43 Unspecified severe protein-calorie malnutrition; J96.02 Acute respiratory failure with hypercapnia; N17.0 Acute kidney failure with tubular necrosis; G92 Toxic encephalopathy; E87.0 Hyperosmolality and hypernatremia; J44.0 Chronic obstructive pulmonary disease with (acute) lower respiratory infection; Z66 Do not resuscitate; I10 Essential (primary) hypertension; E78.5 Hyperlipidemia, unspecified; I95.9 Hypotension, unspecified; F17.210 Nicotine dependence, cigarettes, uncomplicated; F20.9 Schizophrenia, unspecified; D64.9 Anemia, unspecified; F03.90 Unspecified dementia, unspecified severity, without behavioral disturbance, psychotic disturbance, mood disturbance, and anxiety; Z86.718 Personal history of other venous thrombosis and embolism; Z68.35 Body mass index [BMI] 35.0-35.9, adult; Z79.899 Other long term (current) drug therapy
CPT/HCPCS: 10078; 10779; 10879; 85076